=== PATIENT | female | born 1955 | race Two or more races ===

== ENCOUNTER 2018-04-08 13:53 | Outpatient (CLI) | payer OTHER ==
[2018-04-09] MEDS ORDERED: TIROSINT75 MCG PO (10:38)
[2018-04-09] MEDS ORDERED: EFFEXOR XR150 MG PO (10:38)
[2018-04-09] MEDS ORDERED: ZOCOR20 MG PO (10:38)
[2018-04-09] MEDS ORDERED: SINGULAIR10 MG PO (10:39)
[2018-04-09] MEDS ORDERED: COZAAR25 MG PO (10:39)
[2018-04-09] MEDS ORDERED: SENOKOT8.6 M1 PO (10:40)
[2018-04-09] MEDS ORDERED: XANAX1 MG PO (10:40)
[2018-04-09] MEDS ORDERED: BREO ELLIPTA 21 EACH IH (10:40)
== END 2018-04-08 14:11 | disposition home or self-care (01) ==
LOC: RAD 13:53
DX: N95.0 Postmenopausal bleeding (principal); N85.00 Endometrial hyperplasia, unspecified

== ENCOUNTER → 2018-04-09 09:00 | Outpatient (CLI) | payer OTHER ==
[~2018-04-09 09:00] MED LIST: BREO ELLIPTA 21 EACH IH; COZAAR25 MG PO; EFFEXOR XR150 MG PO; SENOKOT8.6 M1 PO; SINGULAIR10 MG PO; TIROSINT75 MCG PO; XANAX1 MG PO; ZOCOR20 MG PO
== END | disposition home or self-care (01) ==
LOC: LAB 09:00 → EDUNIT# 04-10 08:45 → SURH 04-11 08:45 → EDSTATUS 04-11 08:45
DX: N95.0 Postmenopausal bleeding (principal); N85.01 Benign endometrial hyperplasia

== ENCOUNTER 2018-12-14 08:40 | Emergency (ER) | payer OTHER ==
[~2018-12-14] VITALS: Ht 162.6 cm; Wt 78.0 kg
== END 2018-12-14 09:42 | disposition home or self-care (01) ==
LOC: ER 08:40
DX: K52.9 Noninfective gastroenteritis and colitis, unspecified (principal); F06.4 Anxiety disorder due to known physiological condition